=== PATIENT | male | born 1980 | race Hispanic/Latino ===

== ENCOUNTER 2017-07-18 17:48 | Emergency (ER) | payer OTHER ==
[~2017-07-18] VITALS: Ht 170.2 cm; Wt 77.3 kg
[2017-07-18 17:51] VITALS: BP 223/110; PULSE 73; RESP 16; O2SAT 100
--- NOTE | 2017-07-18 20:00 | ED.REPORT ---
HPI-General Illness Date of Service Jul 18, 2017 ED Provider: Mg Salas DO A 36 year old male with a history of hypertension on Lisinopril presents to the ED with dizziness that began this afternoon. The patient states that his current symptoms feel similar to his previous hypertensive episodes. He believes that his Lisinopril has become less effective over the past few months. Upon initial examination, the patient's systolic BP is in the 180's. He denies any chest pain or SOB. Nursing Notes Stated Complaint: DIZZY Chief Complaint: General Complaint Nursing Notes Reviewed: Yes Allergies: Coded Allergies: No Known Allergies (Unverified , 07/18/17) General Time Seen by MD: 19:50 Chief Complaint Dizziness Hx Obtained From: Patient Arrived By: Walk-in Sudden in Onset?: No Onset Occurred: 1 - 4 hours ago Symptom Duration: Since onset Associated with: Reports: Dizziness, Denies: Chest pain, Shortness of breath Pertinent Negative: Pt denies other symptoms Recent Healthcare: No recent doctor visit, No recent hospitalization Past Medical History Past Medical History Hypertension Past Surgical History None reported. Family History Hypertension: Mother and Father Smoking History Unknown if Ever Smoker Social History Alcohol Use: "Social" Drug Use: Denies drug use Other Social History: Good social support, Local resident Ambulatory Status Independent Review of Systems Full Review of Systems Respiratory: Denies: Shortness of breath Cardiovascular: Denies: Chest pain Neurologic: Reports: Dizziness Complete sys rev & neg: except as marked. Physical Exam Vital Signs Vital Signs Date Time Temp Pulse Resp B/P Pulse Ox O2 Delivery O2 Flow Rate FiO2 07/18/17 22:35 53 19 131/68 99 Room Air 07/18/17 21:12 60 21 155/76 100 Room Air 07/18/17 17:51 73 16 223/110 100 Room Air Initial VS: Reviewed General/Constitutional: Well-developed, Well-nourished Neck: Supple, Non-tender, Full range of motion Extremities: Vascular intact, Neuro intact, No swelling, No tenderness Skin: Warm, Dry, No cyanosis Neurologic: Alert, Oriented, Nonfocal Psychiatric: Mood/affect normal, Behavior normal, Normal thought content General/Constitutional: Awake, Alert, No acute distress Head / Eyes: Atraumatic, Normocephalic, PERRL ENT: Atraumatic, Airway patent, Mucous membranes moist Respiratory / Chest: Atraumatic, Breath sounds NL, Breath sounds = bilat, No respiratory distress Cardiovascular: Heart rate NL, Regular rhythm, Heart sounds NL CARDIO: Hypertensive Abdomen: Atraumatic, Soft, Non-tender Neurologic: Oriented X3, Speech NL, No motor deficits, No sensory deficits, CN II - XII intact, Reflexes equal bilat, Cerebellar NL, Memory NL, Gait NL Interpretation & Diagnostics Lab Results Interpretation Result Diagram: 07/18/171956 Test 07/18/17 19:57 Sodium Level 139mEq/L (134-144) Potassium Level 4.3mEq/L (3.5-5.2) Chloride Level 102mEq/L (97-108) Carbon Dioxide Level 20mmol/L (18-29) Blood Urea Nitrogen 14mg/dL (6-20) Creatinine 0.77mg/dL (0.76-1.27) Estimat Glomerular Filtration Rate 120mL/min (>59) Glucose Level 101mg/dL (60-99) Calcium Level 9.8mg/dL (8.5-10.1) Magnesium Level 2.1mg/dL (1.6-2.6) Total Bilirubin 0.5mg/dL (0.0-1.2) Aspartate Amino Transf (AST/SGOT) 22U/L (0-50) Alanine Aminotransferase (ALT/SGPT) 20U/L (0-44) Alkaline Phosphatase 80U/L (25-150) Troponin T < 0.010ug/L (0.0-0.011) Pro-B-Type Natriuretic Peptide 28.66pg/mL (0-86) Total Protein 8.3g/dL (6.4-8.4) Albumin 5.0g/dL (3.4-5.0) Hold [place] Top Tube Received (Received) Pulse Oximetry Interpretation Pulse Oximetry: Pulse Ox normal (100%) ECG Interpretation ECG Interpretation: Sinus rhythm Rate 63 bpm Time: 19:45 Interpreted by: ED physician Rhythm Strip Interpretation : Time: 19:45 Rhythm Strip Interpretation: Interpreted by me, Rate (63), Normal sinus rhythm Re-Eval/Medical Decision Med Decision/Clinical Course Very pleasant 28-year-old male with high blood pressure. For the past several weeks as lisinopril seems to be less effective. He states he can feel his blood pressure was elevated. He does not have any specific symptoms. No stroke symptoms whatsoever. Chest is basic feeling of dysphoria. No chest pain , shortness breath or ripping or tearing pain. No swelling. On exam he was hypertensive but otherwise benign exam. Her neurologic exam is normal. No signs of stroke, dissection or end organ disease. No papilledema. EKG did not show any acute ischemia. Laboratory work is reassuring. He is given extra dose of lisinopril and a diuretic. Blood pressure came down 140 states he felt better than he has in months. He will be placed on chlorthalidone and continues lisinopril. Repeat basic metabolic panel in 2 weeks. Time of Eval: 22:41 Patient Status: Condition improved Re-Evaluation/Progress Note: Patient condition is re-evaluated. Repeat systolic BP is in the 130's. Nausea has improved following treatment. He is informed of his current results and the intended treatment plan. All of the patient's questions are addressed. Patient is given strict return precautions. He understands and agree with the plan. Counseled Regarding: Diagnosis, Lab results, Need for follow-up, When/why to return to ED Discharge & Departure Primary Impression: High blood pressure Hypertension type: essential hypertension Qualified Code: I10 - Essential ( primary) hypertension Disposition: Home Discharge Condition All VS Reviewed: Yes Condition: Stable Patient Instructions: Hypertension (ED) Additional Instructions: Thank you for trusting us with your care this evening. Your emergency department evaluation today including examination, lab work, EKG and chest X-ray are reassuring that there is no emergent cause for concern at this time and there is no evidence of heart or kidney disease. However, a clear cause of your pain was not identified so I highly recommend that you schedule a follow-up appointment with your primary care physician on Friday for a recheck. We started you on a diuretic. Continue to take the water pill every day until you are seen in follow-up. Tell your primary care office that you were seen in the emergency department and you need to have a repeat blood test to check your potassium levels. Please return to the emergency department for any new or worsening conditions including any fevers, chills, nausea, vomiting, intense, crushing chest pain, shortness of breath, excessive sweating, lightheadedness, weakness or any other concerning symptoms. Referrals: [facility] Scribe Attestation Portions of this note were transcribed by Randell Roque. I, Dr. Salas personally performed the history, physical exam and medical decision-making; I reviewed and confirmed the accuracy of the information in the transcribed note. Mg Salas DO Jul 18, 2017 20:00 RANDELL ROQUE Jul 18, 2017 20:17
[2017-07-18 21:12] VITALS: BP 155/76; PULSE 60; RESP 21; O2SAT 100
[2017-07-18 22:13] LABS: TROPONIN T < 0.010 ug/L (0.0-0.011)
[2017-07-18 22:24] LABS: Magnesium 2.1 mg/dL (1.6-2.6)
[2017-07-18 22:35] VITALS: BP 131/68; PULSE 53; RESP 19; O2SAT 99
== END 2017-07-18 22:33 | disposition home or self-care (01) ==
LOC: SED 17:48
DX: I10 Essential (primary) hypertension (principal)